=== PATIENT | female | born 1975 | race Two or more races ===

== ENCOUNTER 2016-11-11 08:43 | Emergency (ER) | payer OTHER ==
[2016-11-11] MEDS ORDERED: SODIUM CHLORIDE 1,000 ML IV STA (08:53)
[2016-11-11] MEDS ORDERED: ACETAMINOPHEN 325 MG TABLET (FP) ONE (09:10)
[2016-11-11] MEDS ORDERED: ACETAMINOPHEN 325 MG TABLET (FP) PO ONE (09:12)
[2016-11-11] MEDS ORDERED: levETIRAcetam 500 MG/5 ML INJECTION VIAL IVPB ONE ×2 (09:12→09:18)
--- NOTE | 2016-11-11 09:12 | PDOC ---
History of Present Illness - General History Source: Patient, Old Records Exam Limitations: No Limitations - History of Present Illness Initial Comments: 11/11/16 09:12 The patient is a 41-year-old woman, accompanied by her daughter, with a significant past medical history of seizure disorder (on Keppra 1000mg and Lamictal 200 mg), anemia and asthma who presents to the emergency department via EMS status post seizure. As per EMS, patient is compliant with her anti- seizure medications everyday at 09:00 AM. Patient states that she had a seizure before taking her medications that lasted approximately 1 minuted. No bowel/ bladder incontinence. She states that she has been recently running a cold and believes this may have triggered her seizure. Blood glucose on scene was 90, as per EMS. Allergies: Hydromorphone Past Surgical History: Cholecystectomy. Appendectomy. Social History: Current everyday cigarette smoker (approximately 11 cigarettes/ day). No EtOH use. Occasional Marijuana use. Neurologist: Dr. Richa Rushing <Seble Shaw - Last Filed: 11/11/16 10:19> <Brenna Richardson - Last Filed: 11/11/16 15:34> - General Chief Complaint: Seizure Stated Complaint: SEIZURE Time Seen by Provider: 11/11/16 08:53 Past History <Seble Shaw - Last Filed: 11/11/16 10:19> - Past Medical History Anemia: Yes Asthma: Yes HTN: No Seizures: Yes (sees neuro, on meds) - Surgical History Abdominal Surgery: Yes (GALL STONE REMOVAL) Appendectomy: Yes Cholecystectomy: Yes - Immunization History Immunization Up to Date: No - Psycho/Social/Smoking Cessation Hx Anxiety: Yes Suicidal Ideation: No Smoking Status: No Smoking History: Current some day smoker Have you smoked in the past 12 months: Yes Number of Cigarettes Smoked Daily: 11 If you are a former smoker, when did you quit?: 07/16/12 Information on smoking cessation initiated: No 'Breaking Loose' booklet given: 06/16/15 (given previous visit) Hx Alcohol Use: No Drug/Substance Use Hx: Yes (marijuana) Substance Use Type: Marijuana Hx Substance Use Treatment: Yes (rehab) <Brenna Richardson - Last Filed: 11/11/16 15:34> - Past Medical History Allergies/Adverse Reactions: Allergies Allergy/AdvReac Type Severity Reaction Status Date / Time hydromorphone HCl AdvReac made me Verified 11/11/16 08:59 [From Dilaudid] crazy Home Medications: Ambulatory Orders Albuterol Sulfate Inhaler - [Ventolin HFA Inhaler -] 2 inh PO Q4H PRN 03/30/14 Citalopram Hydrobromide [Celexa -] 20 mg PO DAILY 03/30/14 Ergocalciferol [Drisdol -] 50,000 unit PO WEEKLY 03/30/14 Ferrous Gluconate [Fergon -] 324 mg PO DAILY 03/30/14 Levetiracetam [Keppra -] 1,000 mg PO BID 03/30/14 Pnv/Iron,Carb/Om-3/FA/Fat 1 [Multivitamin with Minerals Cap] 1 each PO DAILY Lamotrigine [Lamictal -] 200 mg PO BID 06/24/16 Oxycodone HCl/Acetaminophen [Percocet 10-325 mg Tablet] 1 each PO BID PRN #10 tablet MDD 2 06/24/16 Quetiapine Fumarate [Seroquel -] 300 mg PO HS 06/24/16 Risperidone [Risperdal] 2 mg PO BID 06/24/16 Review of Systems - Review of Systems Able to Perform ROS?: Yes Comments:: 11/11/16 09:12 GENERAL/CONSTITUTIONAL: No fever or chills. No weakness. HEAD, EYES, EARS, NOSE AND THROAT: No change in vision. No ear pain or discharge. No sore throat. CARDIOVASCULAR: No chest pain or shortness of breath. RESPIRATORY: No cough, wheezing, or hemoptysis. GASTROINTESTINAL: No nausea, vomiting, diarrhea or constipation. GENITOURINARY: No dysuria, frequency, or change in urination. MUSCULOSKELETAL: No joint or muscle swelling or pain. No neck or back pain. SKIN: No rash NEUROLOGIC: Yes: Seizure. Headache. No vertigo, loss of consciousness, or change in strength/sensation. ENDOCRINE: No increased thirst. No abnormal weight change. HEMATOLOGIC/LYMPHATIC: Yes: History of anemia. No easy bleeding, or history of blood clots. ALLERGIC/IMMUNOLOGIC: No hives or skin allergy. <Seble Shaw - Last Filed: 11/11/16 10:19> *Physical Exam - Vital Signs Last Vital Signs Temp Pulse Resp BP Pulse Ox 97.8 F 94 H 20 111/63 98 11/11/16 08:54 11/11/16 08:54 11/11/16 08:54 11/11/16 08:54 11/11/16 08:54 - Physical Exam Comments: 11/11/16 09:13 GENERAL: Awake, alert, and fully oriented, in no acute distress HEAD: No signs of trauma EYES: PERRLA, EOMI, sclera anicteric, conjunctiva clear ENT: Auricles normal inspection, hearing grossly normal, nares patent, oropharynx clear without exudates. Dry mucosa LUNGS: Breath sounds equal, clear to auscultation bilaterally. No wheezes, and no crackles HEART: Regular rate and rhythm, normal S1 and S2, no murmurs, rubs or gallops ABDOMEN: Soft, nontender, normoactive bowel sounds. No guarding, no rebound. No masses EXTREMITIES: Normal range of motion, no edema. No clubbing or cyanosis. No cords, erythema, or tenderness NEUROLOGICAL: Cranial nerves II through XII grossly intact. Normal speech, normal gait <Seble Shaw - Last Filed: 11/11/16 10:19> - Vital Signs Last Vital Signs Temp Pulse Resp BP Pulse Ox 97.8 F 94 H 20 111/63 98 11/11/16 08:54 11/11/16 08:54 11/11/16 08:54 11/11/16 08:54 11/11/16 08:54 <Brenna Richardson - Last Filed: 11/11/16 15:34> ED Treatment Course - LABORATORY CBC & Chemistry Diagram: 11/11/16 09:00 11/11/16 09:10 <Seble Shaw - Last Filed: 11/11/16 10:19> - LABORATORY CBC & Chemistry Diagram: 11/11/16 09:00 11/11/16 09:10 <Brenna Richardson - Last Filed: 11/11/16 15:34> Medical Decision Making - Medical Decision Making Pt observed in ED. I gave her morning meds, as she had not yet taken them this morning. She has had breakthrough seizures in the past. She has been feeling ill recently, but no fevers. She has not missed any meds. No further seizure activity in the ED. Stable for DC home. <Brenna Richardson - Last Filed: 11/11/16 15:34> *DC/Admit/Observation/Transfer - Attestations Scribe Attestion: 11/11/16 09:13 Documentation prepared by Seble Shaw, acting as emergency medical service manager for Brenna Richardson MD. <Seble Shaw - Last Filed: 11/11/16 10:19> - Discharge Dispostion Admit: No <Brenna Richardson - Last Filed: 11/11/16 15:34> Diagnosis at time of Disposition: Seizure disorder - Discharge Dispostion Disposition: HOME Condition at time of disposition: Improved - Patient Instructions Printed Discharge Instructions: DI for Seizure Disorder -- Adult
[2016-11-11 09:14] LABS: BASOPHIL 0.5 % (0-2.0); EOSINOPHIL 0.5 % (0-4.5); MCH 30.9 pg (25.7-33.7); MCHC 33.7 g/dl (32.0-36.0); MEAN CELL VOLUME 91.7 fl (80-96); MEAN PLT VOLUME 7.4 fl (7.5-11.1); NEUTROPHILS 72.3 % (42.8-82.8); PLATELET COUNT 215 K/MM3 (134-434); RDW 13.3 % (11.6-15.6); WHITE BLOOD COUNT 8.4 K/mm3 (4.0-10.0)
[2016-11-11] MEDS ORDERED: lamoTRIgine 25 MG TABLET ONE (09:15)
[2016-11-11 09:16] LABS: URINE APPEARANCE SLCLOUDY; URINE BILIRUBIN NEGATIVE (NEGATIVE); URINE BLOOD NEGATIVE (NEGATIVE); URINE COLOR YELLOW; URINE GLUCOSE (UA) NEGATIVE (NEGATIVE); URINE KETONE NEGATIVE (NEGATIVE); URINE LEUK ESTERASE TRACE (NEGATIVE); URINE NITRITE NEGATIVE (NEGATIVE); URINE PROTEIN 2+ (NEGATIVE); URINE UROBILINOGEN NEGATIVE E.U./dl (0.2-1.0)
[2016-11-11 09:27] VITALS: BP 111/63; PULSE 94; TEMP 97.8; BMI 35.5
[2016-11-11 09:32] LABS: GRANULAR CASTS 11 /lpf; URINE HYALINE CAST 6 /lpf; URINE MUCUS FEW; URINE RBC 5 /hpf (0-3); URINE WBC 4 /hpf (3-5)
[2016-11-11 09:39] LABS: ALBUMIN 3.5 g/dl (3.4-5.0); ALK PHOS 71 U/L (45-117); ANION GAP 8 (8-16); BILIRUBIN,TOTAL 0.3 mg/dL (0.2-1.0); CALCIUM 8.8 mg/dL (8.5-10.1); CO2 24 mmol/L (21-32); CREATININE 0.9 mg/dL (0.55-1.02); GLUCOSE,RANDOM 91 mg/dL (74-106); MAGNESIUM 1.7 mg/dL (1.8-2.4); SGOT/AST 13 U/L (15-37); SGPT/ALT 16 U/L (12-78); TOT PROT 7.1 g/dl (6.4-8.2)
== END 2016-11-11 11:33 | disposition home or self-care (01) ==
LOC: JER 08:43
PROC: 3E033GC Introduction of Other Therapeutic Substance into Peripheral Vein, Percutaneous Approach (ICD-10-PCS; principal; 2016-11-11)
PROC: 3E0337Z Introduction of Electrolytic and Water Balance Substance into Peripheral Vein, Percutaneous Approach (ICD-10-PCS; 2016-11-11)
DX: G40.909 Epilepsy, unspecified, not intractable, without status epilepticus (principal); F17.210 Nicotine dependence, cigarettes, uncomplicated; J45.909 Unspecified asthma, uncomplicated
CPT/HCPCS: 36415; 80053; 81003; 81015; 83735; 84703; 85025; 99283-25

== ENCOUNTER → 2019-03-19 | Emergency (ER) | payer OTHER ==
[~2019-03-19] MED LIST: SODIUM CHLORIDE 0.9% 500 ML INFUS.BAG IV ONE; morphine CARPU-JECT 4 MG/1 ML DISP.SYRIN IVPUSH ONE; morphine SULFATE 4 MG/ML VIAL ONE
[2019-03-19 03:29] VITALS: BP 127/58; PULSE 83; TEMP 98.1; BMI 27.1
--- NOTE | 2019-03-19 04:23 | PDOC ---
History of Present Illness - General Chief Complaint: Pain, Acute Stated Complaint: ABD PAIN Time Seen by Provider: 03/19/19 03:40 History Source: Patient Exam Limitations: No Limitations - History of Present Illness Initial Comments: Demetra Chen is a 43 yo obese F w a pmh of seizures on 1749 of keppra, anemia , and asthma who presents to the [facility] er BIBEMS from [facility] with severe LLQ abdominal pain radiating to her groin. She describes the pain as intermittent in nature and is quite severe. She states it all started suddenly earlier today. She has been writhing in pain on the bed and cannot stay still. endorses nausea and multiple bouts of emesis. She is screaming in pain on the bed. Denies fevers, chills, diarrea, constipation, vaginal discharge, or history of GC/CT Allergies: Hydromorphone Past Surgical History: Cholecystectomy. Appendectomy. Social History: Current everyday cigarette smoker (approximately 11 cigarettes/ day). No EtOH use. Occasional Marijuana use. Neurologist: Dr. Richa Rushing Past History - Past Medical History Allergies/Adverse Reactions: Allergies Allergy/AdvReac Type Severity Reaction Status Date / Time hydromorphone HCl AdvReac made me Verified 03/19/19 03:27 [From Dilaudid] crazy Home Medications: Ambulatory Orders Citalopram Hydrobromide [Celexa -] 20 mg PO DAILY 03/30/14 levETIRAcetam [Keppra -] 1,000 mg PO BID 03/30/14 Lamotrigine [Lamictal -] 200 mg PO BID 06/24/16 Anemia: Yes Asthma: Yes Disorders: No HTN: No Liver Disease: No Seizures: Yes (sees neuro, on meds) Thyroid Disease: No - Surgical History Abdominal Surgery: Yes (GALL STONE REMOVAL) Appendectomy: Yes Cholecystectomy: Yes - Immunization History Immunization Up to Date: No - Psycho Social/Smoking Cessation Hx Smoking Status: No Smoking History: Unknown if ever smoked Have you smoked in the past 12 months: No Number of Cigarettes Smoked Daily: 11 If you are a former smoker, when did you quit?: 07/16/12 Information on smoking cessation initiated: No 'Breaking Loose' booklet given: 06/16/15 (given previous visit) Hx Alcohol Use: Yes Drug/Substance Use Hx: No (unknown) Substance Use Type: Marijuana Hx Substance Use Treatment: Yes (rehab) Review of Systems - Review of Systems Able to Perform ROS?: Yes Comments:: CONSTITUTIONAL: Absent: fever, no chills, no fatigue EYES: Absent: visual changes ENT: Absent: ear pain, no sore throat CARDIOVASCULAR: Absent: chest pain, no palpitations RESPIRATORY: Absent: cough, no SOB GI: Present: Abdominal pain, nausea, vomiting Absent: no constipation, no diarrhea GENITOURINARY: Absent: dysuria, no frequency, no hematuria MUSKULOSKELETAL: Absent: back pain, no arthralgia, no myalgia SKIN: Absent: rash NEURO: Absent: headache *Physical Exam - Vital Signs Last Vital Signs Temp Pulse Resp BP Pulse Ox 98.1 F 83 20 127/58 L 100 03/19/19 03:27 03/19/19 03:27 03/19/19 03:27 03/19/19 03:27 03/19/19 03:27 - Physical Exam Comments: GENERAL: Patient is lying in bed sideways and screaming in pain. Severe distress. HEENT: Normocephalic, atraumatic. PERRL, EOM intact. CARDIOVASCULAR: Tachycardic rate. Normal S1, S2. Regular rhythm. PULMONARY: No evidence of respiratory distress. Lungs clear to auscultation bilaterally. No wheezing, rales or rhonchi. ABDOMEN: There is a significant amount of LLQ ttp. Patient is guarding. EXTREMITIES: Normal ROM in all four extremities. No gross deformities. SKIN: Warm, dry. No rash NEUROLOGICAL: No focal neurological deficits. Female Pelvic Exam: positive: normal external exam, cervical os closed, CMT, adnexal tenderness (left). negative: normal adnexa (significant Left adnexal TTP), discharge ED Treatment Course - LABORATORY CBC & Chemistry Diagram: 03/19/19 04:30 03/19/19 04:30 Medical Decision Making - Medical Decision Making Demetra Chen is a 43 yo obese F w a pmh of seizures on 175 of keppra, anemia , and asthma who presents to the [facility] er BIBEMS from [facility] where she got 8 mg of morphine for her abdominal pain. They also did an ultrasound and ct scan of her abdomen. - Patient ran out of the back door from [facility] called 911, ambulance came and she forced the ambulance to take her to [facility] - The results are still not back from [facility] at [facility] - [facility] er [id number] given to doc at [facility] who says he will call us back as soon as the results come in. Dr. Medina from [facility]: patient was very uncomfortable, 8 of morphine was given , went for TVUS - septated cystic structure in left adnexa Left ovary: 5.6 by 4.0 by 5.4 cm - Radiologist commented that he didn't see anything that was specifically suggestive of torsion to him. right ovary- 2.5x1.3x1.6 US report from 2017 complex ovarian mass in right ovary - Blood in urine - CTAP w IV contrast: Low density mass in left adnexa representing a large ovarian cyst - No free fluid IUP in place - Normal bowel loops MDM: We are concerned this patient is having ovarian torsion OB consult: Spoke with Dr. Gupta who says to have the night time [employer] Sy[employer] Operator come in so he can look at the images here - Paging the on akua night ultrasonagropher Signing out patient to Dr. Armas for final ED workup and disposition Discharge - Discharge Information Problems reviewed: Yes Clinical Impression/Diagnosis: Abdominal pain Qualifiers: Abdominal location: left lower quadrant Qualified Code(s): R10.32 - Left lower quadrant pain Condition: Stable - Follow up/Referral - Patient Discharge Instructions - Post Discharge Activity
[2019-03-19 04:57] LABS: BASO % 0.9 % (0-2.0); EOS % 0.3 % (0-4.5); HEMATOCRIT 34.9 % (32.4-45.2); HEMOGLOBIN 11.8 GM/dL (10.7-15.3); LYMPH % 20.4 % (8-40); MCH 31.6 pg (25.7-33.7); MCHC 33.9 g/dl (32.0-36.0); MEAN CELL VOLUME 93.1 fl (80-96); MEAN PLT VOLUME 7.9 fl (7.5-11.1); MONO % 6.9 % (3.8-10.2); NEUT % 71.5 % (42.8-82.8); PLATELET COUNT 275 K/MM3 (134-434); RBC 3.75 M/mm3 (3.60-5.2); RDW 13.3 % (11.6-15.6)
[2019-03-19 05:17] LABS: ALBUMIN 3.2 g/dl (3.4-5.0); BILIRUBIN,TOTAL 0.6 mg/dL (0.2-1); BLOOD UREA NITROGEN 10.3 mg/dL (7-18); CALCIUM 8.3 mg/dL (8.5-10.1); CREATININE 0.9 mg/dL (0.55-1.3); POTASSIUM 3.6 mmol/L (3.5-5.1); TOT PROT 5.9 g/dl (6.4-8.2)
--- NOTE | 2019-03-19 05:28 | PDOC ---
Attending Attestation - Resident Resident Name: Alvarez Kelley - ED Attending Attestation I have performed the following: I have examined & evaluated the patient, The case was reviewed & discussed with the resident, I agree w/resident's findings & plan, Exceptions are as noted - HPI HPI: 03/19/19 07:32 43F pmh seizure, asthma, anemia here with severe, episodic LLQ abdominal pain. Was seen and examined at [facility] but patient eloped before imaging was read. She left the hospital grounds and called an ambulance. - Physicial Exam PE: 03/19/19 07:34 Agree with exam as documented by resident Patient visibly in distress +TTP LLQ - Medical Decision Making 03/19/19 07:35 Colicky LLQ abd px, TVUS at [facility] +for >5cm cystic mass on L ovary Concern for torsion Contacted Dr. Espinoza, will follow clinical course, input after in house official TVUS Called professor of early childhood education US tech for emergent TVUS TVUS with large cystic structure, appears to have flow on my review Awaiting official read Update Dr. Espinoza when tvus read Dispo pending
[2019-03-19 10:44] LABS: URINE APPEARANCE CLOUDY; URINE COLOR ORANGE
[2019-03-19 10:45] LABS: URINE BILIRUBIN NEGATIVE (NEGATIVE); URINE GLUCOSE (UA) NEGATIVE (NEGATIVE); URINE KETONE 15 mg/dl (NEGATIVE)
[2019-03-19 10:46] LABS: PH,URINE > 9.0 (5.0-8.0)
[2019-03-19 10:58] LABS: URINE PROTEIN 2+ (NEGATIVE); URINE UROBILINOGEN 1 mg/dL (0.2-1.0)
[2019-03-19 10:59] LABS: EPI CELLS 2.7 /HPF (0-5/HPF); HYALINE CASTS 3 /lpf (0-8); URINE BACTERIA 0.7 /hpf (NEGATIVE); URINE LEUK ESTERASE TRACE (NEGATIVE); URINE NITRITE NEGATIVE (NEGATIVE); URINE RBC 1556 /hpf (0-4); URINE WBC 7 /hpf (0-5)
--- NOTE | 2019-03-19 11:25 | PDOC ---
*Physical Exam - Vital Signs Last Vital Signs Temp Pulse Resp BP Pulse Ox 98.1 F 83 20 127/58 L 100 03/19/19 03:27 03/19/19 03:27 03/19/19 03:27 03/19/19 03:27 03/19/19 03:27 ED Treatment Course - LABORATORY CBC & Chemistry Diagram: 03/19/19 04:30 03/19/19 04:30 - ADDITIONAL ORDERS Additional order review: Laboratory Results 03/19/19 04:30 Sodium 140 Potassium 3.6 Chloride 111 H Carbon Dioxide 22 Anion Gap 8 BUN 10.3 Creatinine 0.9 Est GFR (CKD-EPI)AfAm 90.76 Est GFR (CKD-EPI)NonAf 78.31 Random Glucose 98 Calcium 8.3 L Total Bilirubin 0.6 AST 13 L ALT 15 Alkaline Phosphatase 57 Total Protein 5.9 L Albumin 3.2 L 03/19/19 04:30 RBC 3.75 MCV 93.1 MCHC 33.9 RDW 13.3 MPV 7.9 Neutrophils % 71.5 Lymphocytes % 20.4 Monocytes % 6.9 Eosinophils % 0.3 Basophils % 0.9 - Medications Given in the ED: ED Medications Discontinued Medications Generic Name Dose Route Start Last Admin Trade Name Freq PRN Reason Stop Dose Admin Morphine Sulfate 4 mg 03/19/19 04:15 03/19/19 04:40 Morphine Injection - IVPUSH 03/19/19 04:16 4 mg ONCE ONE Administration Sodium Chloride 1,000 ml 03/19/19 06:03 03/19/19 06:15 Normal Saline - IV 03/19/19 06:04 1,000 ml ONCE ONE Administration Medical Decision Making - Medical Decision Making 03/19/19 10:16 pt ps/o by night team for possible torsion pt received Morphine from [facility] and again in our ED with resolution of pain Pending US, noted US yesterday from [facility] negative fro torsion, MOPHEAD SEWER consulted, states he would like an update when report is back Report back states neg for torsion however, complex cyst noted and f/u required Report from nurse, pt pulled out IV and eloped Discharge - Discharge Information Clinical Impression/Diagnosis: Abdominal pain Qualifiers: Abdominal location: left lower quadrant Qualified Code(s): R10.32 - Left lower quadrant pain Condition: Stable - Follow up/Referral - Patient Discharge Instructions - Post Discharge Activity
== END | disposition left against medical advice (07) ==
LOC: JER 03:25
PROC: 3E033NZ Introduction of Analgesics, Hypnotics, Sedatives into Peripheral Vein, Percutaneous Approach (ICD-10-PCS; principal; 2019-03-19)
PROC: 3E0337Z Introduction of Electrolytic and Water Balance Substance into Peripheral Vein, Percutaneous Approach (ICD-10-PCS; 2019-03-19)
DX: R10.32 Left lower quadrant pain (principal); Z88.8 Allergy status to other drugs, medicaments and biological substances; R56.9 Unspecified convulsions; J45.909 Unspecified asthma, uncomplicated; D64.9 Anemia, unspecified
CPT/HCPCS: 36415; 76830-TC; 80053; 81003; 85025; 87086; 96374; 99283-25

== ENCOUNTER 2019-08-11 12:40 | Emergency (ER) | payer OTHER ==
[2019-08-11 12:56] VITALS: BMI 26.8
--- NOTE | 2019-08-11 13:40 | PDOC ---
History of Present Illness - General Chief Complaint: Pain, Acute Stated Complaint: L/KNEE PAIN Time Seen by Provider: 08/11/19 13:39 Past History - Past Medical History Allergies/Adverse Reactions: Allergies Allergy/AdvReac Type Severity Reaction Status Date / Time hydromorphone HCl AdvReac made me Verified 08/11/19 12:50 [From Dilaudid] crazy Home Medications: Ambulatory Orders Citalopram Hydrobromide [Celexa -] 20 mg PO DAILY 03/30/14 levETIRAcetam [Keppra -] 1,000 mg PO BID 03/30/14 Lamotrigine [Lamictal -] 200 mg PO BID 06/24/16 Perphenazine 1 tab PO ASDIR 08/11/19 Anemia: Yes Asthma: Yes COPD: No Disorders: No HTN: No Liver Disease: No Seizures: Yes (sees neuro, on meds) Thyroid Disease: No - Surgical History Abdominal Surgery: Yes (GALL STONE REMOVAL) Appendectomy: Yes Cholecystectomy: Yes - Immunization History Immunization Up to Date: No - Psycho Social/Smoking Cessation Hx Smoking Status: No Smoking History: Current every day smoker Have you smoked in the past 12 months: No Number of Cigarettes Smoked Daily: 11 If you are a former smoker, when did you quit?: 07/16/12 Information on smoking cessation initiated: Yes 'Breaking Loose' booklet given: 06/16/15 (given previous visit) Hx Alcohol Use: No Drug/Substance Use Hx: No Substance Use Type: Marijuana Hx Substance Use Treatment: Yes (rehab) *Physical Exam - Vital Signs Last Vital Signs Temp Pulse Resp BP Pulse Ox 97.9 F 78 18 112/53 L 97 08/11/19 12:55 08/11/19 12:55 08/11/19 12:55 08/11/19 12:55 08/11/19 12:55 Discharge - Follow up/Referral Referrals: Radha Rosenthal MD [Primary Care Provider] - - Patient Discharge Instructions - Post Discharge Activity
--- NOTE | 2019-08-11 14:08 | PDOC ---
History of Present Illness - General Chief Complaint: Pain, Acute Stated Complaint: L/KNEE PAIN Time Seen by Provider: 08/11/19 13:39 - History of Present Illness Initial Comments: Demetra Chen is a 43 y/o female with reported PMH significant for seizures (on keppra), anemia, asthma, kidney stones, presenting today with left calf swelling, and diffuse abdominal discomfort. Reports that she was at her therapist's office when a nurse noticed her left leg swelling and instructed her to go to the ER. Reports that her left calf has been mildly swollen for the past two months. No fever/chills. No shortness of breath. No chest pain. No dysuria/hematuria. 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 Reports that she had a uretal stent placed a year ago and was supposed to have them removed but has not been able to follow up yet. Unsure about who her urologist is. Neuro: Dr. Rushing Past History - Past Medical History Allergies/Adverse Reactions: Allergies Allergy/AdvReac Type Severity Reaction Status Date / Time hydromorphone HCl AdvReac made me Verified 08/11/19 12:50 [From Dilaudid] crazy Home Medications: Ambulatory Orders Citalopram Hydrobromide [Celexa -] 20 mg PO DAILY 03/30/14 levETIRAcetam [Keppra -] 1,000 mg PO BID 03/30/14 Lamotrigine [Lamictal -] 200 mg PO BID 06/24/16 Perphenazine 1 tab PO ASDIR 08/11/19 Anemia: Yes Asthma: Yes COPD: No Disorders: No HTN: No Liver Disease: No Seizures: Yes (sees neuro, on meds) Thyroid Disease: No - Surgical History Abdominal Surgery: Yes (GALL STONE REMOVAL) Appendectomy: Yes Cholecystectomy: Yes - Immunization History Immunization Up to Date: No - Psycho Social/Smoking Cessation Hx Smoking Status: No Smoking History: Current every day smoker Have you smoked in the past 12 months: No Number of Cigarettes Smoked Daily: 11 If you are a former smoker, when did you quit?: 07/16/12 Information on smoking cessation initiated: Yes 'Breaking Loose' booklet given: 06/16/15 (given previous visit) Hx Alcohol Use: No Drug/Substance Use Hx: No Substance Use Type: Marijuana Hx Substance Use Treatment: Yes (rehab) Review of Systems - Review of Systems Comments:: GENERAL/CONSTITUTIONAL: No fever or chills. No weakness._ HEAD, EYES, EARS, NOSE AND THROAT: No change in vision. No change in hearing. No sore throat._ CARDIOVASCULAR: No chest pain or shortness of breath_ RESPIRATORY: Denies cough, hemoptysis_ GASTROINTESTINAL: Reports abdominal discomfort. No nausea, vomiting, diarrhea or constipation._ GENITOURINARY: No dysuria, frequency, or change in urination._ MUSCULOSKELETAL: Reports left calf swelling. No neck or back pain._ SKIN: No rash_ NEUROLOGIC: No headache, vertigo, loss of consciousness, or change in strength/sensation._ ENDOCRINE: No increased thirst. No abnormal weight change_ HEMATOLOGIC/LYMPHATIC: No anemia, easy bleeding, or history of blood clots._ ALLERGIC/IMMUNOLOGIC: No hives or skin allergy._ *Physical Exam - Vital Signs Last Vital Signs Temp Pulse Resp BP Pulse Ox 97.9 F 78 18 112/53 L 97 08/11/19 12:55 08/11/19 12:55 08/11/19 12:55 08/11/19 12:55 08/11/19 12:55 - Physical Exam GENERAL: Awake, alert, and oriented to person/place/time, in no acute distress_ HEAD: No signs of trauma, normocephalic, atraumatic _ EYES: PERRLA, EOMI, sclera anicteric, conjunctiva clear_ ENT: Hearing grossly normal, nares patent, oropharynx clear without exudates. No uvular deviation. Moist mucosa_ NECK: Normal ROM, supple, no lymphadenopathy, JVD, or masses_ LUNGS: No distress, speaks in full sentences, clear to auscultation bilaterally _ HEART: Regular rate and rhythm, normal S1 and S2, no murmurs appreciated, peripheral pulses normal and equal bilaterally._ ABDOMEN: Soft, minimal discomfort that is distractable, normoactive bowel sounds. No guarding, no rebound. No masses_ EXTREMITIES: Normal inspection, Normal range of motion. 1+ pitting edema in left lower extremity. No clubbing or cyanosis_ NEUROLOGICAL: Cranial nerves II through XII grossly intact. Normal speech, normal gait, no focal sensorimotor deficits _ SKIN: Warm, Dry, normal turgor, no rashes or lesions noted_ Medical Decision Making - Medical Decision Making 44F presenting with left lower extremity swelling and diffuse abdominal discomfort. -upreg -KUB -venous duplex US LLE -XR left knee 3V 08/11/19 15:31 Upreg negative. 08/11/19 16:55 KUB XR shows right sided uretal stent. 08/11/19 18:03 US LLE shows no signs of DVT. 08/11/19 18:04 XR left knee shows no signs of acute fracture. Joint space narrowing, possible OA. 08/11/19 18:07 Pt reassessed. Reports much improvement. Plan to d/c home with PCP, ortho, urology f/u. All questions answered. Return precautions given. Pt verbalized understanding and agreement with plan. Discharge - Discharge Information Problems reviewed: Yes Clinical Impression/Diagnosis: Leg swelling Condition: Stable Disposition: HOME - Admission No - Follow up/Referral Referrals: [facility] [Provider Group] Chucky Del Rosario MD., [Staff Physician] - Alessandro Salinas DO [Staff Physician] - - Patient Discharge Instructions Patient Printed Discharge Instructions: DI for Leg Pain Additional Instructions: Your ultrasound study did not show any signs of blood clot in the leg. Your XR of the knee did not show any fracture. Please make a follow up appointment with a primary care doctor, orthopedist, and urologist (for stent removal). Referrals provided here. If you experience any new, worsening, or concerning symptoms, including shortness of breath, leg swelling or redness, fever, chills, or any other concern, please return to the emergency department. - Post Discharge Activity
--- NOTE | 2019-08-11 15:55 | PDOC ---
Documentation entered by Jeannette Adames SCRIBE, acting as scribe for Marco Griffin MD. Marco Griffin MD: This documentation has been prepared by the Rosangela chino Xhesika, SCRIBE, under my direction and personally reviewed by me in its entirety. I confirm that the documentation accurately reflects all work, treatment, procedures, and medical decision making performed by me. Attending Attestation - Resident Resident Name: Elio Peña - ED Attending Attestation I have performed the following: I have examined & evaluated the patient, The case was reviewed & discussed with the resident, I agree w/resident's findings & plan, Exceptions are as noted - HPI HPI: 08/11/19 14:26 The patient is a 44 year old female with a significant PMH of seizures and kidney stones who presents to the emergency department for LE swelling and redness. The patient states her therapist noticed her legs this morning and advised her to come to the ED for an ultrasound and further evaluations. The patient denies chest pain, shortness of breath, headache and dizziness. Denies fever, chills, cough, nausea, vomiting, diarrhea and constipation. Denies dysuria, frequency, urgency and hematuria. Allergies: hydromorphone HCL - Physicial Exam PE: 08/11/19 15:52 Awake and alert, well-nourished, in no significant distress Normocephalic and atraumatic PERRLA, EOMI CTA RRR Abdomen soft, nontender, nondistended, no CVA tenderness bilaterally Left lower extremity: Soft tissue swelling noted to the knee joint, with no laxity valgus/valgus; anterior/posterior drawer is negative; Joyce's is negative; extensive varicosities noted to the left lower extremity; neurovascularly intact distally. - Medical Decision Making 08/11/19 15:54 44-year-old female with history of nephrolithiasis and seizure disorder presents with atraumatic left leg pain for the past 3 months as well as atraumatic left flank pain. On evaluation, no CVA tenderness is noted bilaterally; abdomen soft and nontender; evaluation of the left lower extremities reveals a mild left knee effusion and significant varicosities. Will obtain knee x-ray to rule out fracture. will obtain left lower extremity Doppler ultrasound to rule out DVT. Will obtain KUB to evaluate ureteral stents.
[2019-08-11 18:24] VITALS: BP 115/75; PULSE 80; TEMP 98
== END 2019-08-11 18:24 | disposition home or self-care (01) ==
LOC: JER 12:40
DX: M79.89 Other specified soft tissue disorders (principal); Z88.8 Allergy status to other drugs, medicaments and biological substances; F17.210 Nicotine dependence, cigarettes, uncomplicated; J45.909 Unspecified asthma, uncomplicated; R56.9 Unspecified convulsions; N20.0 Calculus of kidney; D64.9 Anemia, unspecified
CPT/HCPCS: 73562-TC-LT-FY; 74018-TC-FY; 84703; 93971-TC; 99285-25

== ENCOUNTER 2020-01-04 04:57 | Day surgery (SDC) | payer OTHER ==
[2020-01-03 12:25] VITALS: BMI 23.0
[2020-01-04 09:54] VITALS: TEMP 97.5
[2020-01-04 10:11] VITALS: PULSE 57
[2020-01-04 10:33] VITALS: BP 118/61
--- NOTE | 2020-01-05 14:43 | PATH ---
Surgical Pathology Report Patient Name: KIM OWUSU [facility]. Rec. #: [id number] /Age/Gender: 1975 (Age: 44) / F Account: [id number] Location: U-ENDOSCOPY Taken: 01/04/2020 Received: 01/04/2020 Reported: 01/05/2020 Physicians: Campbell Wang D.O. Specimen(s) Received ANTRUM AND BODY Clinical History Abnormal findings of imaging of liver and biliary tract Postoperative diagnosis: Gastritis Final Diagnosis ANTRUM AND BODY OF STOMACH, BIOPSY: GASTRIC MUCOSA WITH CHRONIC GASTRITIS. IMMUNOSTAIN FOR H. PYLORI IS NEGATIVE. NEGATIVE FOR INTESTINAL METAPLASIA. Electronically Signed Madhavi Glass M.D. Gross Description Received in formalin, labeled "biopsy antrum and body of stomach" are 3 ramirez, irregular portions of soft tissue ranging from 0.1-0.2 cm. in greatest dimension. The specimens are submitted in toto in one cassette. /01/04/2020 [facility]01/04/2020
== END 2020-01-04 10:56 | disposition home or self-care (01) ==
LOC: JASU-ENDO 04:57
PROVIDERS: ATTEND Internal Medicine Gastroenterology
PROC: 0DB68ZX Excision of Stomach, Via Natural or Artificial Opening Endoscopic, Diagnostic (ICD-10-PCS; principal; 2020-01-04 09:00)
DX: K29.50 Unspecified chronic gastritis without bleeding (principal); R93.3 Abnormal findings on diagnostic imaging of other parts of digestive tract; R63.4 Abnormal weight loss
CPT/HCPCS: 81025; 88305-TC; 88342-TC

== ENCOUNTER 2020-09-19 10:13 | Emergency (ER) | payer OTHER ==
[2020-09-19 10:32] VITALS: BP 117/77; PULSE 76; TEMP 98.4; BMI 25.8
[2020-09-19] MEDS ORDERED: levETIRAcetam 500 MG/5 ML INJECTION VIAL IVPB ONE ×3 (11:03→11:15)
[2020-09-19] MEDS ORDERED: lamoTRIgine 100 MG TABLET ONE (11:15)
[2020-09-19 12:23] LABS: BASO % 0.4 % (0-2.0); HEMATOCRIT 38.4 % (32.4-45.2); HEMOGLOBIN 13.2 GM/dL (10.7-15.3); LYMPH % 6.3 % (8-40); MCH 31.9 pg (25.7-33.7); MCHC 34.5 g/dl (32.0-36.0); MEAN CELL VOLUME 92.5 fl (80-96); MEAN PLT VOLUME 7.3 fl (7.5-11.1); MONO % 1.9 % (3.8-10.2); NEUT % 91.4 % (42.8-82.8); PLATELET COUNT 337 K/MM3 (134-434); RBC 4.15 M/mm3 (3.60-5.2); RDW 13.4 % (11.6-15.6); WHITE BLOOD COUNT 9.2 K/mm3 (4.0-10.0)
[2020-09-19 12:29] LABS: CALCIUM 8.4 mg/dL (8.5-10.1)
[2020-09-19 12:30] LABS: ALBUMIN 3.3 g/dl (3.4-5.0)
[2020-09-19 12:33] LABS: CREATININE 0.6 mg/dL (0.55-1.3)
[2020-09-19 12:35] LABS: BILIRUBIN,TOTAL 0.7 mg/dL (0.2-1); TOT PROT 6.7 g/dl (6.4-8.2)
[2020-09-19 14:15] LABS: ANISOCYTOSIS 0; HELMET CELLS 0; HOWELL-JOLLY BODIES 0; MACROCYTOSIS 0; OVALOCYTE 0; PLATELET ESTIMATE NORMAL; ROULEAU 0; SICKELED CELLS 0; TARGET CELLS 0; TEAR DROP CELLS 0; TOXIC GRANULATION 0
== END 2020-09-19 11:30 | disposition left against medical advice (07) ==
LOC: JER 10:13
PROC: 3E033NZ Introduction of Analgesics, Hypnotics, Sedatives into Peripheral Vein, Percutaneous Approach (ICD-10-PCS; principal; 2020-09-19)
PROC: 3E033GC Introduction of Other Therapeutic Substance into Peripheral Vein, Percutaneous Approach (ICD-10-PCS; 2020-09-19)
DX: R56.9 Unspecified convulsions (principal)
CPT/HCPCS: 36415; 80053; 85025; 93005; 93010; 99285-25

== ENCOUNTER 2021-03-09 17:12 | Inpatient (IN) | payer OTHER ==
[2021-03-09] MEDS ORDERED: CEFTRIAXONE 1,000 MG in DEXTROSE 5%-WATER - 50 ML IVPB ONE (19:00)
[2021-03-09] MEDS ORDERED: SODIUM CHLORIDE 0.9% 500 ML INFUS.BAG IV ONE (19:06)
[2021-03-09] MEDS ORDERED: KETOROLAC TROMETHAMINE 15 MG/ML VIAL IVPUSH ONE (19:06)
[2021-03-09] MEDS ORDERED: CEFTRIAXONE 1 GM/50 ML BAG ONE (19:36)
[2021-03-09] MEDS ORDERED: KETOROLAC TROMETHAMINE 15 MG/ML VIAL ONE (19:36)
[2021-03-09 19:40] LABS: HEMATOCRIT 38.4 % (32.4-45.2); MCH 31.2 pg (25.7-33.7); MCHC 33.8 g/dl (32.0-36.0); MEAN CELL VOLUME 92.3 fl (80-96); MEAN PLT VOLUME 7.1 fl (7.5-11.1); MONO % 5.3 % (3.8-10.2); NEUT % 77.7 % (42.8-82.8); PLATELET COUNT 251 10^3/uL (134-434); RBC 4.16 M/mm3 (3.60-5.2); RDW 13.2 % (11.6-15.6); WHITE BLOOD COUNT 6.9 K/mm3 (4.0-10.0)
[2021-03-09 20:04] LABS: CHLORIDE 107 mmol/L (98-107); SODIUM 139 mmol/L (136-145)
[2021-03-09 20:08] LABS: ANION GAP 4 MMOL/L (8-16); BLOOD UREA NITROGEN 7.5 mg/dL (7-18); CALCIUM 8.2 mg/dL (8.5-10.1); CO2 28 mmol/L (21-32)
[2021-03-09 20:11] LABS: CREATININE 0.6 mg/dL (0.55-1.3); SGOT/AST 13 U/L (15-37); SGPT/ALT 13 U/L (13-61)
[2021-03-09 20:13] LABS: BILIRUBIN,TOTAL 0.4 mg/dL (0.2-1); GLUCOSE,RANDOM 99 mg/dL (74-106); TOT PROT 6.4 g/dl (6.4-8.2)
[2021-03-09 20:14] LABS: ALK PHOS 67 U/L (45-117)
[2021-03-09] MEDS ORDERED: ENOXAPARIN NA (PORCINE) 40 MG/0.4 ML DISP.SYRIN SQ ONE (21:58)
[2021-03-09] MEDS: ENOXAPARIN NA (PORCINE) 40 MG/0.4 ML DISP.SYRIN SQ SCH (22:01)
[2021-03-09] MEDS ORDERED: levETIRAcetam 500 MG TABLET (FP) PO ONE (22:01)
[2021-03-09] MEDS ORDERED: lamoTRIgine 100 MG TABLET ONE (22:02)
[2021-03-09] MEDS: levETIRAcetam 500 MG TABLET (FP) PO SCH (22:06)
[2021-03-10 03:13] VITALS: BMI 22.8
[2021-03-10] MEDS: ENOXAPARIN NA (PORCINE) 40 MG/0.4 ML DISP.SYRIN SQ SCH ×2 (09:18→09:31)
[2021-03-10] MEDS: lamoTRIgine 100 MG TABLET PO SCH ×2 (09:18→09:31)
[2021-03-10] MEDS: levETIRAcetam 500 MG TABLET (FP) PO SCH ×2 (09:19→09:30)
[2021-03-10 09:49] LABS: BASO % 0.5 % (0-2.0); EOS % 1.6 % (0-4.5); HEMATOCRIT 37.4 % (32.4-45.2); HEMOGLOBIN 12.8 GM/dL (10.7-15.3); LYMPH % 23.4 % (8-40); MCH 31.5 pg (25.7-33.7); MCHC 34.4 g/dl (32.0-36.0); MEAN CELL VOLUME 91.6 fl (80-96); MEAN PLT VOLUME 7.3 fl (7.5-11.1); MONO % 6.1 % (3.8-10.2); NEUT % 68.4 % (42.8-82.8); PLATELET COUNT 262 10^3/uL (134-434); RBC 4.08 M/mm3 (3.60-5.2); RDW 13.3 % (11.6-15.6); WHITE BLOOD COUNT 8.5 K/mm3 (4.0-10.0)
[2021-03-10 10:17] LABS: BLOOD UREA NITROGEN 6.3 mg/dL (7-18)
[2021-03-10 10:18] LABS: ALBUMIN 2.8 g/dl (3.4-5.0); CALCIUM 7.9 mg/dL (8.5-10.1); MAGNESIUM 1.5 mg/dL (1.8-2.4)
[2021-03-10 10:22] LABS: PHOSPHOROUS 2.6 mg/dL (2.5-4.9)
[2021-03-10 10:23] LABS: BILIRUBIN,TOTAL 0.6 mg/dL (0.2-1); TOT PROT 5.9 g/dl (6.4-8.2)
[2021-03-10 10:31] VITALS: BP 130/76; PULSE 81; TEMP 98
[2021-03-10 10:31] LABS: CREATININE 0.6 mg/dL (0.55-1.3)
== END 2021-03-10 11:36 | disposition left against medical advice (07) | DRG 53 ==
LOC: JER 17:12 → JERBED 20:28 → J4S 03-10 02:47
PROVIDERS: ADMIT Internal Medicine; ATTEND Internal Medicine
DX: G40.909 Epilepsy, unspecified, not intractable, without status epilepticus (principal); N39.0 Urinary tract infection, site not specified; F12.90 Cannabis use, unspecified, uncomplicated; J45.909 Unspecified asthma, uncomplicated; R53.1 Weakness; T42.5X6A Underdosing of mixed antiepileptics, initial encounter
CPT/HCPCS: 36415; 70450-TC; 71045-TC-FY; 80053; 80175; 80177; 80307; 81003; 82550; 82962; 83690; 83735; 84100; 84443; 84479; 84484; 84703; 85025; 85027; 87086; 93005; 93010; 99285-25; C9803; G0378; J0131; U0003; U0005

== ENCOUNTER 2021-06-15 18:34 | Inpatient (IN) | payer OTHER ==
[2021-06-15 19:05] VITALS: BP 139/89; PULSE 90; TEMP 98.7; BMI 25.0
[2021-06-15] MEDS ORDERED: levETIRAcetam 500 MG/5 ML INJECTION VIAL IVPB ONE ×2 (20:22→21:15)
[2021-06-15 21:40] LABS: BASO % 0.1 % (0-2.0); EOS % 2.2 % (0-4.5); HEMATOCRIT 40.1 % (32.4-45.2); HEMOGLOBIN 13.8 GM/dL (10.7-15.3); LYMPH % 32.7 % (8-40); MCH 31.1 pg (25.7-33.7); MCHC 34.4 g/dl (32.0-36.0); MEAN CELL VOLUME 90.4 fl (80-96); MONO % 8.5 % (3.8-10.2); NEUT % 56.5 % (42.8-82.8); PLATELET COUNT 317 10^3/uL (134-434); RBC 4.43 M/mm3 (3.60-5.2); RDW 13.1 % (11.6-15.6); WHITE BLOOD COUNT 7.7 K/mm3 (4.0-10.0)
[2021-06-15 22:00] LABS: BLOOD UREA NITROGEN 9.9 mg/dL (7-18); CALCIUM 9.1 mg/dL (8.5-10.1)
[2021-06-15 22:01] LABS: ALBUMIN 3.7 g/dl (3.4-5.0); MAGNESIUM 2.2 mg/dL (1.8-2.4)
[2021-06-15 22:03] LABS: CREATININE 0.7 mg/dL (0.55-1.3)
[2021-06-15 22:05] LABS: BILIRUBIN,TOTAL 0.6 mg/dL (0.2-1); TOT PROT 7.3 g/dl (6.4-8.2)
[2021-06-16] MEDS ORDERED: ENOXAPARIN NA (PORCINE) 40 MG/0.4 ML DISP.SYRIN SQ SCH (10:00)
[2021-06-16] MEDS ORDERED: levETIRAcetam 500 MG TABLET (FP) PO SCH (10:00)
== END 2021-06-16 01:22 | disposition left against medical advice (07) | DRG 53 ==
LOC: JER 18:34 → JERBED 22:45
PROVIDERS: ADMIT Internal Medicine; ATTEND Internal Medicine
DX: G40.909 Epilepsy, unspecified, not intractable, without status epilepticus (principal); F14.10 Cocaine abuse, uncomplicated; F12.90 Cannabis use, unspecified, uncomplicated; J45.909 Unspecified asthma, uncomplicated; M62.81 Muscle weakness (generalized); R41.3 Other amnesia; F32.A Depression, unspecified; N83.202 Unspecified ovarian cyst, left side
CPT/HCPCS: 36415; 80053; 80175; 80177; 82550; 83735; 84146; 85025; 99285-25; C9803; U0003; U0005

== ENCOUNTER 2021-06-20 19:42 | Emergency (ER) | payer OTHER ==
[2021-06-20 20:17] VITALS: BP 123/80; PULSE 80; TEMP 97.9; BMI 25.8
[2021-06-20] MEDS ORDERED: levETIRAcetam 500 MG TABLET (FP) PO ONE ×2 (21:32→21:36)
[2021-06-20] MEDS ORDERED: lamoTRIgine 100 MG TABLET ONE (21:37)
[2021-06-20 21:55] LABS: BASO % 0.7 % (0-2.0); EOS % 1.6 % (0-4.5); HEMATOCRIT 38.6 % (32.4-45.2); HEMOGLOBIN 12.9 GM/dL (10.7-15.3); LYMPH % 24.3 % (8-40); MCH 30.5 pg (25.7-33.7); MCHC 33.3 g/dl (32.0-36.0); MEAN CELL VOLUME 91.6 fl (80-96); MEAN PLT VOLUME 7.5 fl (7.5-11.1); MONO % 6.5 % (3.8-10.2); NEUT % 66.9 % (42.8-82.8); PLATELET COUNT 275 10^3/uL (134-434); RBC 4.21 M/mm3 (3.60-5.2); RDW 13.4 % (11.6-15.6); WHITE BLOOD COUNT 8.3 K/mm3 (4.0-10.0)
[2021-06-20 22:17] LABS: CALCIUM 8.7 mg/dL (8.5-10.1)
[2021-06-20 22:19] LABS: ALBUMIN 3.6 g/dl (3.4-5.0)
[2021-06-20 22:21] LABS: CREATININE 0.7 mg/dL (0.55-1.3)
[2021-06-20 22:22] LABS: BILIRUBIN,TOTAL 0.2 mg/dL (0.2-1)
[2021-06-20 22:23] LABS: TOT PROT 7.1 g/dl (6.4-8.2)
[2021-06-20 22:29] LABS: BLOOD UREA NITROGEN 10.6 mg/dL (7-18)
== END 2021-06-20 21:51 | disposition left against medical advice (07) ==
LOC: JER 19:42
DX: R56.9 Unspecified convulsions (principal)
CPT/HCPCS: 36415; 80053; 80175; 80177; 85025; 99284-25

== ENCOUNTER 2023-12-23 15:36 | Emergency (ER) | payer OTHER ==
[2023-12-23 15:56] VITALS: BP 153/98; PULSE 85; RESP 22; TEMP 98.1; BMI 25.8
[2023-12-23] MEDS: morphine CARPU-JECT 4 MG/1 ML DISP.SYRIN IVPUSH ONE (16:15)
[2023-12-23] MEDS ORDERED: morphine SULFATE 4 MG/ML VIAL ONE (16:24)
[2023-12-23 17:21] LABS: BASO % 0.6 % (0-2.0); EOS % 1.9 % (0-4.5); HEMATOCRIT 39.8 % (32.4-45.2); HEMOGLOBIN 13.7 GM/dL (10.7-15.3); LYMPH % 32.6 % (8-40); MCH 31.6 pg (25.7-33.7); MCHC 34.5 g/dl (32.0-36.0); MEAN CELL VOLUME 91.5 fl (80-96); MEAN PLT VOLUME 7.9 fl (7.5-11.1); MONO % 5.9 % (3.8-10.2); PLATELET COUNT 278 10^3/uL (134-434); RBC 4.35 M/mm3 (3.60-5.2); RDW 12.6 % (11.6-15.6); WHITE BLOOD COUNT 8.1 K/mm3 (4.0-10.0)
[2023-12-23 17:37] LABS: POTASSIUM 3.7 mmol/L (3.5-5.1)
[2023-12-23 17:41] LABS: CALCIUM 9.4 mg/dL (8.5-10.1)
[2023-12-23 17:42] LABS: ALBUMIN 3.8 g/dl (3.4-5.0); BLOOD UREA NITROGEN 12.1 mg/dL (7-18)
[2023-12-23 17:46] LABS: BILIRUBIN,TOTAL 0.7 mg/dL (0.2-1); TOT PROT 7.3 g/dl (6.4-8.2)
[2023-12-23] MEDS ORDERED: ACETAMINOPHEN INJECTION 100 ML IVPB ONE (18:02)
[2023-12-23] MEDS: ACETAMINOPHEN 1000 MG/100 ML BAG IVPB ONE (18:22)
== END 2023-12-23 19:00 | disposition left against medical advice (07) ==
LOC: JER 15:36
PROC: 3E033NZ Introduction of Analgesics, Hypnotics, Sedatives into Peripheral Vein, Percutaneous Approach (ICD-10-PCS; principal; 2023-12-23)
PROC: 3E033GC Introduction of Other Therapeutic Substance into Peripheral Vein, Percutaneous Approach (ICD-10-PCS; 2023-12-23)
PROC: 3E033NZ Introduction of Analgesics, Hypnotics, Sedatives into Peripheral Vein, Percutaneous Approach (ICD-10-PCS; 2023-12-23)
DX: R10.84 Generalized abdominal pain (principal); M25.511 Pain in right shoulder
CPT/HCPCS: 36415; 80053; 84702; 85025; 96374; 96375; 99284-25; J0131

== ENCOUNTER 2023-12-23 19:58 | Emergency (ER) | payer OTHER ==
[2023-12-23 20:09] VITALS: BP 138/100; PULSE 68; RESP 18; TEMP 98.6; BMI 25.8
== END 2023-12-23 22:05 | disposition left against medical advice (07) ==
LOC: JER 19:58
DX: Z53.21 Procedure and treatment not carried out due to patient leaving prior to being seen by health care provider (principal)
CPT/HCPCS: 99281-25

== ENCOUNTER 2023-12-25 14:11 | Emergency (ER) | payer OTHER ==
[2023-12-25 14:18] VITALS: BP 121/82; PULSE 93; RESP 18; TEMP 98; BMI 25.7
[2023-12-25 15:09] LABS: EPI CELLS >36 /uL (0-25.1); HYALINE CASTS 11 /uL (0-3.1); PH,URINE 5.5 (5.0-8.0); URINE APPEARANCE CLOUDY; URINE BACTERIA 68 /uL (0-1359); URINE BILIRUBIN NEGATIVE (NEGATIVE); URINE COLOR DK YELLOW; URINE GLUCOSE (UA) NEGATIVE (NEGATIVE); URINE KETONE 1+ (NEGATIVE); URINE LEUK ESTERASE 1+ (NEGATIVE); URINE NITRITE NEGATIVE (NEGATIVE); URINE PROTEIN 2+ (NEGATIVE); URINE RBC 1324 /uL (0-23.9); URINE WBC 77 /uL (0-25.8)
[2023-12-25 15:10] LABS: HCG,QUALITATIVE URINE Negative
[2023-12-25] MEDS ORDERED: KETOROLAC TROMETHAMINE 30 MG/1 ML VIAL ONE (15:32)
[2023-12-25] MEDS: SODIUM CHLORIDE 0.9% 500 ML INFUS.BAG IV ONE (15:54)
[2023-12-25] MEDS: KETOROLAC TROMETHAMINE 30 MG/1 ML VIAL IVPUSH ONE (15:55)
[2023-12-25] MEDS ORDERED: CEFTRIAXONE 1 GM/50 ML BAG ONE (16:52)
[2023-12-25] MEDS: CEFTRIAXONE 1 GM in DEXTROSE 5%-WATER - 100 ML IVPB ONE (17:06)
== END 2023-12-25 17:27 | disposition home or self-care (01) ==
LOC: JER 14:11
PROC: 3E03329 Introduction of Other Anti-infective into Peripheral Vein, Percutaneous Approach (ICD-10-PCS; principal; 2023-12-25)
PROC: 3E0333Z Introduction of Anti-inflammatory into Peripheral Vein, Percutaneous Approach (ICD-10-PCS; 2023-12-25)
DX: R10.9 Unspecified abdominal pain (principal); N20.0 Calculus of kidney
CPT/HCPCS: 74176-TC; 81003; 84703; 87086; 99284-25

== ENCOUNTER 2024-03-02 04:05 | Day surgery (SDC) | payer OTHER ==
[2024-02-27 10:22] VITALS: BMI 26.8
[2024-03-02 06:25] VITALS: RESP 20
[2024-03-02] MEDS ORDERED: LEVOFLOXACIN IVPB ONE (07:21)
[2024-03-02] MEDS ORDERED: MIDAZOLAM HCL 2 MG/2 ML SINGLE DOSE VIAL ONE (07:33)
[2024-03-02] MEDS ORDERED: PROPOFOL 20 ML ONE (07:33)
[2024-03-02 08:25] VITALS: BP 112/66; PULSE 55; TEMP 98.1
== END 2024-03-02 09:45 | disposition home or self-care (01) ==
LOC: JASU-SURG 04:05
PROVIDERS: ATTEND Urology
PROC: 0TF4XZZ Fragmentation in Left Kidney Pelvis, External Approach (ICD-10-PCS; principal; 2024-03-02 07:49)
DX: N20.0 Calculus of kidney (principal)
CPT/HCPCS: 81025

== ENCOUNTER 2024-04-27 04:30 | Day surgery (SDC) | payer OTHER ==
[2024-04-26 09:16] VITALS: BMI 27.4
[2024-04-27] MEDS ORDERED: MIDAZOLAM HCL 2 MG/2 ML SINGLE DOSE VIAL ONE ×2 (08:23→08:50)
[2024-04-27] MEDS ORDERED: PROPOFOL 20 ML ONE ×2 (08:54→08:55)
[2024-04-27] MEDS ORDERED: ONDANSETRON 4 MG/2 ML VIAL IVPUSH PRN (09:18)
[2024-04-27] MEDS ORDERED: LACTATED RINGERS SOLUTION 1,000 ML IV SCH (09:30)
[2024-04-27 10:43] VITALS: RESP 18
[2024-04-27 10:48] VITALS: BP 126/87; PULSE 54; TEMP 97.5
== END 2024-04-27 10:20 | disposition home or self-care (01) ==
LOC: JASU-SURG 04:30
PROVIDERS: ATTEND Urology
PROC: 0TF3XZZ Fragmentation in Right Kidney Pelvis, External Approach (ICD-10-PCS; principal; 2024-04-27 09:00)
DX: N20.0 Calculus of kidney (principal)
CPT/HCPCS: 81025; 94760